=== PATIENT | male | born 1995 | race Two or more races ===

== ENCOUNTER 2021-12-11 18:18 | Emergency (ER) | payer SELFPAY ==
[~2021-12-11] VITALS: Ht 165.1 cm; Wt 60.0 kg
[2021-12-11] MEDS ORDERED: TETANUS-DIPTH-ACEL PERTUSSIS 0.5ML SYR Tdap IM ONE (22:00)
[2021-12-11 23:22] VITALS: BP 118/69
== END 2021-12-11 23:26 | disposition home or self-care (01) ==
LOC: ER 18:18
DX: S01.81XA Laceration without foreign body of other part of head, initial encounter (principal); W22.8XXA Striking against or struck by other objects, initial encounter; Y93.89 Activity, other specified; Y92.89 Other specified places as the place of occurrence of the external cause; Y99.8 Other external cause status
CPT/HCPCS: 90471; 90715